=== PATIENT | female | born 1995 | race Asian ===

== ENCOUNTER 2017-01-13 13:43 | Emergency (ER) | payer OTHER ==
[~2017-01-13] VITALS: Ht 160 cm; Wt 89.5 kg
[2017-01-13 13:47] VITALS: Ht 160 cm; Wt 89.5 kg
[2017-01-13] MEDS ORDERED: IBUP800T25 PO (14:10)
--- NOTE | 2017-01-13 14:10 | ERD ---
ER Documentation Chief Complaint Chief Complaint sore throat since thursday with white patches. fever yesterday HPI 21-year-old female presents with sore throat for 2 days. She states she notices a white spot on there. She also has a cough. No nausea and vomiting. No fever. She has been taking TheraFlu but it does not help. She is tolerating oral intake. ROS All systems reviewed and are negative except as per history of present illness. FmHx Family History: No diabetes Physical Exam Vitals Vital Signs Date Time Temp Pulse Resp B/P Pulse Ox O2 Delivery O2 Flow Rate FiO2 01/13/17 13:47 98.2 102 18 146/85 98 Physical Exam INITIAL VITAL SIGNS: Reviewed by me GENERAL: Awake, alert and oriented x 4, well appearing, nontoxic, speaking in full sentences. No acute distress HEAD: Atraumatic NECK: Supple. No masses. Full range of motion. No meningismus. No midline tenderness. EYES: EOMI. PERRL. EAR: No tenderness over the mastoids bilaterally. No exudates in the canals. TMs nonerythematous. NOSE: Normal nose. THROAT: No tonilar erythema or edema. No exudates. Uvula midline. No kissing tonsils. RESPIRATORY: Clear to auscultation bilaterally. Symmetric chest wall rise. No wheezing or rales. No accessory muscle use. CV: Regular rate and rhythm. No murmurs, rubs, or gallops. Procedures/MDM Patient presents with pharyngitis most likely viral. She is afebrile well- appearing. Her tonsils look normal and there is no erythema or edema and no exudates. She was discharged with Motrin. Patient counseled regarding my diagnostic impression and care plan. Prior to discharge all questions answered. Pt agrees with treatment plan and understands strict return precautions. Pt is instructed to follow up with primary care provider within 24-48 hours. Precautionary instructions provided including instructions to return to the ER if not improving or for any worsening or changing symptoms or concerns. Departure Diagnosis: Primary Impression: Pharyngitis Condition: Stable ANDRES GARRETT PA-C Jan 13, 2017 14:10
== END 2017-01-13 14:59 | disposition home or self-care (01) ==
LOC: FTE 13:43
DX: J02.9 Acute pharyngitis, unspecified (principal)
CPT/HCPCS: 99283

== ENCOUNTER 2018-02-12 23:28 | Emergency (ER) | END 2018-02-13 02:53 | disposition home or self-care (01) ==

== ENCOUNTER 2018-05-31 23:44 | Emergency (ER) | payer BC ==
[~2018-05-31] VITALS: Ht 157.5 cm; Wt 84.1 kg
[~2018-05-31 23:44] MED LIST: IBUP800T48 PO; NAPR-985 PO; NITR-58 PO
[2018-05-31 23:46] VITALS: Ht 157.5 cm; Wt 84.1 kg
[2018-06-01] MEDS ORDERED: SOD CHLORIDE 0.9% 500 ML IV STA (00:14)
[2018-06-01] MEDS ORDERED: ALPR0.5T PO (01:55)
[2018-06-01] MEDS ORDERED: LORAZEPAM 2 MG INJ IV ONE (02:00)
[2018-06-01 02:55] VITALS: BP 161/87; PULSE 88; RESP 22
--- NOTE | 2018-06-28 04:14 | ERD ---
ER Documentation Chief Complaint Chief Complaint sycnopal episode in front of ER department +SOB HPI This is a 22-year-old female suffered a syncopal episode when she has not been to the ER department today. She said she felt short of breath. She has been under a lot of stress lately has been very anxious. Denies any fevers or chills. Denies any nausea vomiting. Denies any focal neurologic complaints. Denies any visual acuity changes. Denies suicidal homicidal ideation. Denies auditory or visual hallucinations. ROS All systems reviewed and are negative except as per history of present illness. Medications Home Meds Active Scripts Alprazolam* (Xanax*) 0.5 Mg Tab, 0.5 MG PO Q8H PRN for ANXIETY, #14 TAB Prov:ELLIE JONES 06/01/18 Nitrofurantoin Monohyd Macrocr* (Macrobid*) 100 Mg Capsr, 100 MG PO BID for 14 Days, CAP Prov:ZACARIAS FREED PA-C 02/13/18 Naproxen* (Naprosyn*) 500 Mg Tablet, 500 MG PO BID PRN for PAIN AND/OR INFLAMMATION, #30 TAB Prov:ZACARIAS FREED PA-C 02/13/18 Ibuprofen* (Motrin*) 800 Mg Tab, 800 MG PO Q6, #30 TAB Prov:ANDRSE GARRETT PA-C 01/13/17 Allergies Allergies: Coded Allergies: No Known Allergy (Unverified , 01/13/17) PMhx/Soc Medical and Surgical Hx: pt denies Surgical Hx History of Surgery: No Anesthesia Reaction: No Hx Neurological Disorder: No Hx Respiratory Disorders: No Hx Cardiac Disorders: No Hx Psychiatric Problems: Yes (Anxiety) Hx Miscellaneous Medical Probl: No Hx Alcohol Use: No Hx Substance Use: No Hx Tobacco Use: No Smoking Status: Never smoker Physical Exam Physical Exam Const: No acute distress Head: Atraumatic Eyes: Normal Conjunctiva ENT: Normal External Ears, Nose and Mouth. Neck: Full range of motion. No meningismus. Resp: Clear to auscultation bilaterally Cardio: Regular rate and rhythm, no murmurs Abd: Soft, non tender, non distended. Normal bowel sounds Skin: No petechiae or rashes Back: No midline or flank tenderness Ext: No cyanosis, or edema Neur: Awake and alert Psych: Normal Mood and Affect Results 24 hrs Laboratory Tests Test 06/01/18 00:51 06/01/18 00:55 06/01/18 00:56 06/01/18 01:03 Bedside Glucose 80 mg/dL Prothrombin Time 12.7 Sec Prothrombin Time 1.0 Ratio INR International 0.94 Normalized Ratio Activated 31.1 Sec Partial Thromboplas t Time White Blood Count 8.4 10^3/ul Red Blood Count 4.68 10^6/ul Hemoglobin 13.6 g/dl Hematocrit 41.3 % Mean Corpuscular 88.2 fl Volume Mean Corpuscular 29.1 pg Hemoglobin Mean Corpuscular 32.9 g/dl Hemoglobin Concent Red Cell 13.2 % Distribution Width Platelet Count 334 10^3/UL Mean Platelet 9.3 fl Volume Immature 0.500 % Granulocytes % Neutrophils % 57.4 % Lymphocytes % 29.3 % Monocytes % 8.5 % Eosinophils % 3.3 % Basophils % 1.0 % Nucleated Red Blood 0.0 /100WBC Cells % Immature 0.040 10^3/ul Granulocytes # Neutrophils # 4.8 10^3/ul Lymphocytes # 2.5 10^3/ul Monocytes # 0.7 10^3/ul Eosinophils # 0.3 10^3/ul Basophils # 0.1 10^3/ul Nucleated Red Blood 0.0 10^3/ul Cells # Sodium Level 144 mmol/L Potassium Level 3.8 mmol/L Chloride Level 105 mmol/L Carbon Dioxide 24 mmol/L Level Anion Gap 15 Blood Urea Nitrogen 10 mg/dl Creatinine 0.80 mg/dl Est Glomerular > 60 mL/min Filtrat Rate mL/min Glucose Level 86 mg/dl Calcium Level 9.8 mg/dl Troponin I < 0.012 ng/ml POC Beta HCG, NEGATIVE Qualitative Current Medications Medications Dose Sig/Dean Start Time Status Last (Trade) Ordered Route PRN Stop Time Admin Dose Reason Admin Sodium 500 ml @ Q1H STAT 06/01/18 DC 06/01/18 Chloride 500 mls/hr IV 00:14 01:27 06/01/18 01:13 Lorazepam 1 mg ONCE ONCE 06/01/18 DC (Ativan) IV 02:00 06/01/18 02:01 Procedures/MDM EKG: Rate/Rhythm: [Normal Sinus Rhythm] QRS, ST, T-waves: [No changes consistent w/ acute ischemia] Impression: [No evidence of ischemia or arrhythmia] Chest X-ray 1V Interpreted by me: Soft Tissue: No acute abnormalities Bones: No acute abnormalities Mediastinum/Cardiac Silhouette/Lungs: [No acute abnormalities] Patient's syncopal symptoms have stabilized while in the department and are suitable for outpatient follow up. Exam and work up not consistent w/ ischemia, arrhythmia, stroke, PE or dissection. Departure Diagnosis: Primary Impression: Syncope Syncope type: unspecified Qualified Codes: R55 - Syncope and collapse Condition: Stable Patient Instructions: Anxiety Reaction, Syncope, Unk Cause ELLIE JONES Jun 28, 2018 04:14
== END 2018-06-01 03:58 | disposition home or self-care (01) ==
LOC: E/R 23:44
DX: R55 Syncope and collapse (principal)
CPT/HCPCS: 70450; 71045; 80048; 81025; 82962; 84484; 85025; 85610; 85730; 93005; J7040; 36415